=== PATIENT | female | born 1990 | race Caucasian/White ===

== ENCOUNTER 2017-02-23 00:03 | Emergency (ER) | payer SELFPAY ==
[~2017-02-23] VITALS: Ht 154.9 cm; Wt 59.5 kg
[2017-02-23 00:05] VITALS: BP 118/80
[2017-02-23] MEDS ORDERED: SODIUM CHLORIDE FLUSH 10ML SYR IVF ONE (00:30)
[2017-02-23 00:32] LABS: BASOPHILS # (AUTO) 0.02 x10^3/uL (0-0.1); BASOPHILS % (AUTO) 0 % (0-1); EOSINOPHILS # (AUTO) 0.52 x10^3/uL (0-0.4); EOSINOPHILS % (AUTO) 5 % (1-7); LYMPHOCYTES # (AUTO) 2.03 x10^3/uL (1-3.4); LYMPHOCYTES % (AUTO) 17 % (22-44); MD NO; MEAN CORPUSCULAR HEMOGLOBIN 28.6 pg (27.0-34.8); MEAN CORPUSCULAR HGB CONC 33.2 g/dL (32.4-35.8); MEAN CORPUSCULAR VOLUME 86.2 fL (80-100); MONOCYTES # (AUTO) 0.44 x10^3/uL (0.2-0.8); MONOCYTES % (AUTO) 4 % (2-9); NEUTROPHILS # (AUTO) 8.66 x10^3/uL (1.8-6.8); NEUTROPHILS % (AUTO) 74 % (42-75); PLATELET COUNT 491 x10^3/uL (130-400); RED BLOOD COUNT 4.79 x10^6/uL (3.82-5.3); RED CELL DISTRIBUTION WIDTH 15.5 % (9.6-15.2)
[2017-02-23 00:43] LABS: ALANINE AMINOTRANSFERASE 16 U/L (12-78); ALBUMIN 3.1 g/dL (3.4-5.0); ANION GAP 5 mmol/L (5-15); CALCIUM 9.6 mg/dL (8.5-10.1); CHLORIDE 105 mmol/L (98-107); CREATININE 0.88 mg/dL (0.55-1.02)
[2017-02-23 00:48] LABS: ALKALINE PHOSPHATASE 94 U/L (45-117); BILIRUBIN,TOTAL 0.3 mg/dL (0.2-1.0)
== END 2017-02-23 00:42 | disposition left against medical advice (07) ==
LOC: ED 00:36
DX: R10.9 Unspecified abdominal pain (principal)
CPT/HCPCS: 36415; 80053; 83690; 84703; 85025; 99284

== ENCOUNTER 2017-09-21 06:45 | Emergency (ER) | payer MEDICAID, OTHER ==
[~2017-09-21] VITALS: Ht 157.5 cm; Wt 59.0 kg
[2017-09-21] MEDS ORDERED: ALBUTEROL/IPRATROPIUM 2.5MG/0.5MG, 3 ML ONE ×2 (07:11→09:39)
[2017-09-21] MEDS: ALBUTEROL/IPRATROPIUM 2.5MG/0.5MG, 3 ML NPPB SCH ×2 (07:13→09:42)
[2017-09-21] MEDS ORDERED: SODIUM CHLORIDE 0.9% 1,000 ML IV ONE (08:26)
[2017-09-21] MEDS ORDERED: PLEASE ENTER WEIGHT MC SCH (08:30)
[2017-09-21] MEDS ORDERED: AZITHROMYCIN 500 MG in SODIUM CHLORIDE 0.9% 250 ML IV ONE (08:30)
[2017-09-21] MEDS ORDERED: SODIUM CHLORIDE 0.9% 1,000ML IVBOLUS ONE (08:30)
[2017-09-21] MEDS ORDERED: CEFTRIAXONE 1,000 MG in SODIUM CHLORIDE 0.9% 50 ML IV ONE (08:30)
[2017-09-21] MEDS ORDERED: ALBUTEROL/IPRATROPIUM 2.5MG/0.5MG, 3 ML NPPB ONE (08:30)
[2017-09-21 09:10] LABS: BASOPHILS # (AUTO) 0.05 x10^3/uL (0-0.1); BASOPHILS % (AUTO) 1 % (0-1); EOSINOPHILS % (AUTO) 11 % (1-7); LYMPHOCYTES # (AUTO) 1.11 x10^3/uL (1-3.4); LYMPHOCYTES % (AUTO) 14 % (22-44); MD NO; MEAN CORPUSCULAR HEMOGLOBIN 30.6 pg (27.0-34.8); MEAN CORPUSCULAR HGB CONC 33.8 g/dL (32.4-35.8); MEAN CORPUSCULAR VOLUME 90.5 fL (80-100); MEAN PLATELET VOLUME 8.2 fL (7.4-10.4); MONOCYTES # (AUTO) 0.44 x10^3/uL (0.2-0.8); MONOCYTES % (AUTO) 6 % (2-9); NEUTROPHILS # (AUTO) 5.58 x10^3/uL (1.8-6.8); NEUTROPHILS % (AUTO) 69 % (42-75); PLATELET COUNT 253 x10^3/uL (130-400); RED BLOOD COUNT 4.62 x10^6/uL (3.82-5.3); RED CELL DISTRIBUTION WIDTH 12.7 % (9.6-15.2)
[2017-09-21 09:21] LABS: ALBUMIN 3.4 g/dL (3.4-5.0); ANION GAP 10 mmol/L (5-15); CALCIUM 8.8 mg/dL (8.5-10.1); CHLORIDE 103 mmol/L (98-107)
[2017-09-21 09:35] VITALS: BP 120/73
[2017-09-21] MEDS ORDERED: CEFTRIAXONE PMX 1GM/50ML 50 ML ONE (09:37)
== END 2017-09-21 10:30 | disposition left against medical advice (07) ==
LOC: ED 07:33
DX: J98.01 Acute bronchospasm (principal); J15.9 Unspecified bacterial pneumonia; F17.210 Nicotine dependence, cigarettes, uncomplicated
CPT/HCPCS: 36415; 71046; 80048; 82040; 83605; 85025; 87040; 94640; 96365; 99285; J0696; J7030; J7512; J7620

== ENCOUNTER 2017-09-28 14:45 | Inpatient (IN) | payer MEDICAID ==
[~2017-09-28] VITALS: Ht 154.9 cm; Wt 64.4 kg
[2017-09-28] MEDS ORDERED: CEFTRIAXONE 1,000 MG in SODIUM CHLORIDE 0.9% 50 ML IVPB ONE (15:30)
[2017-09-28] MEDS ORDERED: ALBUTEROL/IPRATROPIUM 2.5MG/0.5MG, 3 ML ONE (15:48)
[2017-09-28 15:58] LABS: BASOPHILS # (AUTO) 0.05 x10^3/uL (0-0.1); BASOPHILS % (AUTO) 1 % (0-1); EOSINOPHILS # (AUTO) 1.42 x10^3/uL (0-0.4); EOSINOPHILS % (AUTO) 19 % (1-7); LYMPHOCYTES # (AUTO) 2.18 x10^3/uL (1-3.4); LYMPHOCYTES % (AUTO) 29 % (22-44); MD NO; MEAN CORPUSCULAR HEMOGLOBIN 30.3 pg (27.0-34.8); MEAN CORPUSCULAR HGB CONC 33.7 g/dL (32.4-35.8); MEAN CORPUSCULAR VOLUME 89.8 fL (80-100); MEAN PLATELET VOLUME 8.1 fL (7.4-10.4); MONOCYTES # (AUTO) 0.78 x10^3/uL (0.2-0.8); MONOCYTES % (AUTO) 10 % (2-9); NEUTROPHILS # (AUTO) 3.17 x10^3/uL (1.8-6.8); NEUTROPHILS % (AUTO) 42 % (42-75); PLATELET COUNT 275 x10^3/uL (130-400); RED BLOOD COUNT 5.37 x10^6/uL (3.82-5.3); RED CELL DISTRIBUTION WIDTH 12.9 % (9.6-15.2)
[2017-09-28] MEDS ORDERED: ALBUTEROL/IPRATROPIUM 2.5MG/0.5MG, 3 ML NEB ONE (16:00)
[2017-09-28 16:03] LABS: ALANINE AMINOTRANSFERASE 23 U/L (12-78); ALBUMIN 3.8 g/dL (3.4-5.0); ANION GAP 9 mmol/L (5-15); CALCIUM 9.5 mg/dL (8.5-10.1); CHLORIDE 105 mmol/L (98-107); CREATININE 0.92 mg/dL (0.55-1.02)
[2017-09-28 16:06] LABS: ALKALINE PHOSPHATASE 88 U/L (45-117); BILIRUBIN,TOTAL 1.3 mg/dL (0.2-1.0); TOTAL PROTEIN 8.5 g/dL (6.4-8.2)
[2017-09-28] MEDS ORDERED: CEFTRIAXONE PMX 1GM/50ML 50 ML ONE (16:29)
[2017-09-28] MEDS ORDERED: SODIUM CHLORIDE FLUSH 10ML SYR IVF PRN (16:30)
[2017-09-28] MEDS ORDERED: ONDANSETRON ODT 4 MG PO PRN (17:00)
[2017-09-28] MEDS ORDERED: IBUPROFEN 600 MG TABLET PO PRN (17:00)
[2017-09-28] MEDS ORDERED: ACETAMINOPHEN 325 MG TABLET PO PRN (17:00)
[2017-09-28] MEDS ORDERED: ONDANSETRON 2MG/ML, 2ML IVPush PRN (17:00)
[2017-09-28 17:33] VITALS: BP 105/70
[2017-09-28] MEDS ORDERED: KETOROLAC 30 MG/1 ML IV PRN (18:00)
[2017-09-28 18:07] LABS: AMPHETAMINE SCREEN, URINE Positive (Negative); BARBITURATE SCREEN, URINE Negative (Negative); BENZODIAZEPINE SCREEN, URINE Negative (Negative); CANNABINOID SCREEN, URINE Negative (Negative); COCAINE SCREEN, URINE Negative (Negative); METHADONE SCREEN, URINE Negative (Negative); MICROSCOPIC INDICATED; OPIATE SCREEN, URINE Positive (Negative)
[2017-09-28 18:08] LABS: CULTURE INDICATED? YES
[2017-09-28] MEDS: SODIUM CHLORIDE 0.9% 1,000 ML IV SCH (18:27)
[2017-09-28] MEDS: ENOXAPARIN 40 MG/0.4 ML SQ SCH (18:27)
[2017-09-28] MEDS: methylPREDNISolone SOD SUCC 125 MG/2 ML IVPush SCH (18:28)
[2017-09-28] MEDS: NICOTINE 7 MG/24 HR PATCH.TD24 TD SCH (18:29)
[2017-09-28 18:57] VITALS: BP 101/64
[2017-09-28] MEDS: DOXYCYCLINE 100 MG in DEXTROSE 5% 250 ML IV SCH (20:17)
[2017-09-28] MEDS: ALBUTEROL/IPRATROPIUM 2.5MG/0.5MG, 3 ML NPPB SCH (20:46)
[2017-09-29 01:57] VITALS: BP 109/62
[2017-09-29] MEDS: methylPREDNISolone SOD SUCC 125 MG/2 ML IVPush SCH ×3 (02:11→17:17)
[2017-09-29 05:40] LABS: ALBUMIN 3.5 g/dL (3.4-5.0); ANION GAP 11 mmol/L (5-15); CHLORIDE 103 mmol/L (98-107)
[2017-09-29 05:45] LABS: BASOPHILS % (AUTO) 0 % (0-1); EOSINOPHILS % (AUTO) 0 % (1-7); LYMPHOCYTES # (AUTO) 0.47 x10^3/uL (1-3.4); LYMPHOCYTES % (AUTO) 12 % (22-44); MD NO; MEAN CORPUSCULAR HEMOGLOBIN 30.5 pg (27.0-34.8); MEAN CORPUSCULAR HGB CONC 34.4 g/dL (32.4-35.8); MEAN CORPUSCULAR VOLUME 88.7 fL (80-100); MEAN PLATELET VOLUME 8.3 fL (7.4-10.4); MONOCYTES # (AUTO) 0.03 x10^3/uL (0.2-0.8); MONOCYTES % (AUTO) 1 % (2-9); NEUTROPHILS # (AUTO) 3.29 x10^3/uL (1.8-6.8); NEUTROPHILS % (AUTO) 87 % (42-75); PLATELET COUNT 255 x10^3/uL (130-400); RED BLOOD COUNT 4.53 x10^6/uL (3.82-5.3); RED CELL DISTRIBUTION WIDTH 12.9 % (9.6-15.2)
[2017-09-29 05:51] LABS: ALANINE AMINOTRANSFERASE 22 U/L (12-78); ALKALINE PHOSPHATASE 76 U/L (45-117); BILIRUBIN,TOTAL 0.7 mg/dL (0.2-1.0); CREATININE 0.82 mg/dL (0.55-1.02); THYROID STIMULATING HORMONE 0.278 mIU/L (0.358-3.740); TOTAL PROTEIN 7.6 g/dL (6.4-8.2)
[2017-09-29] MEDS: ALBUTEROL/IPRATROPIUM 2.5MG/0.5MG, 3 ML NPPB SCH ×4 (07:50→19:56)
[2017-09-29 07:55] VITALS: BP 94/55
[2017-09-29] MEDS: DOXYCYCLINE 100 MG in DEXTROSE 5% 250 ML IV SCH ×2 (09:15→20:11)
[2017-09-29] MEDS: SODIUM CHLORIDE 0.9% 1,000 ML IV SCH (09:16)
[2017-09-29 13:47] VITALS: BP 97/58
[2017-09-29] MEDS ORDERED: CEFTRIAXONE 1,000 MG in SODIUM CHLORIDE 0.9% 50 ML IV SCH (15:30)
[2017-09-29 16:20] VITALS: BP 105/55
[2017-09-29] MEDS: NICOTINE 7 MG/24 HR PATCH.TD24 TD SCH (17:18)
[2017-09-29] MEDS: ENOXAPARIN 40 MG/0.4 ML SQ SCH (18:25)
[2017-09-29 19:45] VITALS: BP 120/71
[2017-09-30 01:17] VITALS: BP 110/80
[2017-09-30] MEDS: SODIUM CHLORIDE 0.9% 1,000 ML IV SCH (02:26)
[2017-09-30] MEDS: methylPREDNISolone SOD SUCC 125 MG/2 ML IVPush SCH ×2 (02:26→10:33)
[2017-09-30] MEDS: ALBUTEROL/IPRATROPIUM 2.5MG/0.5MG, 3 ML NPPB SCH ×3 (06:19→14:32)
[2017-09-30 07:30] VITALS: BP 111/73
[2017-09-30] MEDS: DOXYCYCLINE 100 MG in DEXTROSE 5% 250 ML IV SCH (08:46)
[2017-09-30] MEDS ORDERED: GUAIFENESIN ER 600 MG TABLET PO SCH (10:00)
[2017-09-30 14:00] VITALS: BP 111/53
== END 2017-09-30 17:21 | disposition left against medical advice (07) | DRG 193 ==
LOC: ED 16:10 → EDIP 16:44 → 3NE 17:17
PROVIDERS: ADMIT Family Medicine; ATTEND Family Medicine
DX: J15.9 Unspecified bacterial pneumonia (principal); J96.01 Acute respiratory failure with hypoxia; J45.901 Unspecified asthma with (acute) exacerbation; F17.210 Nicotine dependence, cigarettes, uncomplicated; Z53.21 Procedure and treatment not carried out due to patient leaving prior to being seen by health care provider; R00.0 Tachycardia, unspecified; F15.10 Other stimulant abuse, uncomplicated; J02.9 Acute pharyngitis, unspecified; E05.90 Thyrotoxicosis, unspecified without thyrotoxic crisis or storm; T38.0X5A Adverse effect of glucocorticoids and synthetic analogues, initial encounter; R73.9 Hyperglycemia, unspecified; Z71.6 Tobacco abuse counseling; Y92.89 Other specified places as the place of occurrence of the external cause
CPT/HCPCS: 36415; 84145; 99285; J7620; 71045; 71260; 80053; 80307; 81001; 83605; 83735; 84100; 84439; 84443; 85025; 85379; 87040; 87086; 93005; 94640; 96374; J0696; J1650; J7060; Q0162; J2930; J7030; J7512

== ENCOUNTER 2018-03-24 13:41 | Emergency (ER) | payer MEDICAID, OTHER ==
[~2018-03-24] VITALS: Ht 154.9 cm; Wt 60.0 kg
[2018-03-24 14:21] LABS: BASOPHILS # (AUTO) 0.05 x10^3/uL (0-0.1); BASOPHILS % (AUTO) 1 % (0-1); EOSINOPHILS # (AUTO) 0.18 x10^3/uL (0-0.4); EOSINOPHILS % (AUTO) 3 % (1-7); LYMPHOCYTES # (AUTO) 1.17 x10^3/uL (1-3.4); LYMPHOCYTES % (AUTO) 19 % (22-44); MD NO; MEAN CORPUSCULAR HEMOGLOBIN 29.3 pg (27.0-34.8); MEAN CORPUSCULAR HGB CONC 33.6 g/dL (32.4-35.8); MEAN CORPUSCULAR VOLUME 87.1 fL (80-100); MEAN PLATELET VOLUME 7.9 fL (7.4-10.4); MONOCYTES % (AUTO) 11 % (2-9); NEUTROPHILS # (AUTO) 4.06 x10^3/uL (1.8-6.8); NEUTROPHILS % (AUTO) 66 % (42-75); PLATELET COUNT 248 x10^3/uL (130-400); RED BLOOD COUNT 4.65 x10^6/uL (3.82-5.3); RED CELL DISTRIBUTION WIDTH 14.5 % (9.6-15.2)
[2018-03-24 14:35] LABS: ANION GAP 4 mmol/L (5-15); CALCIUM 9.2 mg/dL (8.5-10.1); CHLORIDE 106 mmol/L (98-107)
--- NOTE | 2018-03-24 14:40 | NUR ---
TEDDY SALDANA, FROM [facility] CALLED FOR UPDATE ON PATIENT. UPDATED TEDDY SALDANA ON POC. CALL-BACK NUMBER FOR TEDDY SALDANA IS [phone].
[2018-03-24 14:41] LABS: ACETAMINOPHEN 6 mcg/mL (10-30); ALANINE AMINOTRANSFERASE 28 U/L (12-78); ALKALINE PHOSPHATASE 95 U/L (45-117); BILIRUBIN,TOTAL 0.6 mg/dL (0.2-1.0); CREATININE 0.85 mg/dL (0.55-1.02); TOTAL PROTEIN 7.3 g/dL (6.4-8.2)
[2018-03-24 14:42] LABS: SALICYLATE LEVEL < 1.7 mg/dL (2.8-20.0)
[2018-03-24 16:10] VITALS: BP 100/65
[2018-03-24 16:22] LABS: MICROSCOPIC NOT IND
--- NOTE | 2018-03-24 16:26 | NUR ---
PATIENT AMBULATED TO WITH MINIMAL ASSISTANCE. URINE SENT TO LAB.
[2018-03-24 16:33] LABS: AMPHETAMINE SCREEN, URINE Positive (Negative); BARBITURATE SCREEN, URINE Negative (Negative); BENZODIAZEPINE SCREEN, URINE Negative (Negative); CANNABINOID SCREEN, URINE Negative (Negative); COCAINE SCREEN, URINE Negative (Negative); METHADONE SCREEN, URINE Negative (Negative); OPIATE SCREEN, URINE Positive (Negative)
[2018-03-24 16:54] LABS: CULTURE INDICATED? NO
--- NOTE | 2018-03-24 18:18 | NUR ---
Patient/Caregiver given discharge instructions and they have confirmed that they understand the instructions. Patient ambulatory with steady gait with assistance.
== END 2018-03-24 18:19 | disposition home or self-care (01) ==
LOC: ED 14:27
DX: F10.129 Alcohol abuse with intoxication, unspecified (principal); F11.129 Opioid abuse with intoxication, unspecified; F15.929 Other stimulant use, unspecified with intoxication, unspecified; Z00.01 Encounter for general adult medical examination with abnormal findings; J45.909 Unspecified asthma, uncomplicated
CPT/HCPCS: 36415; 71045; 80053; 80307; 80329; 81003; 84703; 85025; 93005; 99284; G0480